=== PATIENT | male | born 1980 | race African-American/Black ===

== ENCOUNTER 2016-09-30 14:29 | Day surgery (SDC) | payer MEDICARE, OTHER ==
[2016-09-29 13:39] LABS: BASOPHILS 0.1 %; BASOPHILS ABSOLUTE 0.01 10/3/uL (0.0-0.16); EOSINOPHILS 1.3 %; EOSINOPHILS ABSOLUTE 0.15 10/3/uL (0.0-0.53); HEMOGLOBIN 12.6 g/dL (13.6-17.8); IMMATURE GRANULOCYTES 0.4 %; IMMATURE GRANULOCYTES ABSOLUTE 0.05 10/3/uL (0.0-0.11); LYMPHOCYTES 21.7 %; LYMPHOCYTES ABSOLUTE 2.42 10/3/uL (0.67-4.30); MEAN CORPUS HGB CONC 33.7 g/dL (32.0-36.0); MEAN CORPUSCULAR HEMOGLOB 29.8 pg (26.0-34.0); MEAN CORPUSCULAR VOLUME 88.4 fL (80-100); MEAN PLATELET VOLUME 9.9 fL (9.2-13.0); MONOCYTES 8.2 %; MONOCYTES ABSOLUTE 0.91 10/3/uL (0.21-1.20); NEUTROPHILS 68.3 %; NEUTROPHILS ABSOLUTE 7.59 10/3/uL (2.02-8.40); RBC DISTRIBUTION WIDTH 13.3 % (12.0-16.0); RED CELL COUNT 4.23 10/6/uL (4.7-6.1)
[2016-09-29 13:42] LABS: HEMATOCRIT 37.4 % (40.0-51.0); MANUAL DIFF NO %; PLATELET COUNT 245 10/3/uL (150-400); WHITE BLOOD CELLS 11.1 10/3/uL (4.5-10.5)
[2016-09-29 13:47] LABS: PROTIME (NOT ORD) 13.5 SEC (12.0-14.5)
[2016-09-29 13:56] LABS: ALBUMIN 3.9 G/DL (3.5-5.0); CALCIUM, SERUM 8.9 MG/DL (8.5-10.4); CHLORIDE, SERUM 98 MMOL/L (96-112); DIRECT BILIRUBIN 0.1 MG/DL (0.0-0.4); GLUCOSE, SERUM 80 MG/DL (60-99); INDIRECT BILIRUBIN(NOT ORDER) 0.5 MG/DL (0.1-0.9); POTASSIUM, SERUM 3.8 MMOL/L (3.5-5.3); SGOT(AST) 69 U/L (5-40); SGPT(ALT) 55 U/L (5-65); SODIUM, SERUM 137 MMOL/L (135-148); TOTAL BILIRUBIN 0.6 MG/DL (0-1.2); TOTAL PROTEIN 7.4 G/DL (6.0-8.5)
[2016-09-29 13:57] LABS: ALKALINE PHOSPHATASE 109 U/L (45-117); BUN (BLOOD UREA NITROGEN) 20 MG/DL (6-23); CO2 (CARBON DIOXIDE) 31 MMOL/L (24-34); CREATININE 1.55 MG/DL (0.70-1.30); GFR AFRICAN AMERICAN 66 ML/MIN (>=60); GFR NON AFRICAN AMERICAN 57 ML/MIN (>=60)
[2016-09-29 14:21] LABS: SED RATE 36 MM/HR (0-15)
--- NOTE | ~2016-09-30 | OP ---
Record Of Operation [facility] [address] [place]. [address] NAME: BIBI ROSA : 80 STATUS : [facility]#: [id number] AGE: 36 ADM/REG DATE : 09/30/16 MR#: [id number] REPORT SERV DATE: 10/05/16 DICTATED BY: DATE: REPORT STATUS : Draft TRANSCRIBED BY: MODL DATE: 10/05/16 DATE OF PROCEDURE: 09/30/2016 PREOPERATIVE DIAGNOSIS: Cellulitis, right foot, secondary to foreign body x2, right first interspace. POSTOPERATIVE DIAGNOSIS: Cellulitis, right foot, secondary to foreign body x2, right first interspace. NAME OF OPERATION: Incision and drainage with foreign body removal, right first interspace. SURGEON: Geronimo Hameed DPM ANESTHESIA: General. HEMOSTASIS: Pneumatic ankle tourniquet. ESTIMATED BLOOD LOSS: Less than 10 mL. PROCEDURE IN DETAIL: Under mild sedation, the patient was brought to the operating room and placed on the operating table in supine position. A pneumatic ankle tourniquet was placed about the patient's right ankle. Following IV sedation, the right foot was scrubbed, prepped, and draped in the usual aseptic manner. The foot was elevated for two minutes and the pneumatic ankle tourniquet was inflated to 250 mmHg. Attention was then directed to the right first interspace, where a 6 cm linear longitudinal incision was made through the two portal entries. The incision was deep via the original skin incision. All bleeders were cauterized as necessary. At this time, the foreign body was visualized in the operative site and removed in total and passed from the operative field and sent to Pathology. The foreign body was approximately 1.5 cm in length and appeared to be metal nail. The wound was then flushed with copious amounts of normal sterile saline. The distal foreign body was noted to be removed from the incision site and was confirmed with intraoperative fluoroscopy. No foreign body was remaining in the first interspace, right foot, by inspection of the incision site and intraoperative fluoroscopy. The wound was then flushed with copious amounts of Hibiclens irrigation. The wound was packed with 0.75-inch silver- impregnated antimicrobial dressing. The wound was covered with ABD pad, 4x4 gauze, and 3- and 4-inch Conform gauze wrap. The pneumatic ankle tourniquet was then deflated, and a prompt hyperemic response noted to all digits of the right foot. An Jose wrap and postop shoe was then applied. The patient tolerated the procedure and anesthesia well. He was transferred to recovery room, vital signs stable, and vascular status intact to all digits of the right foot. Following a period of postoperative monitoring, the patient was discharged home on written and oral postop instructions. 1. Keep dressing dry and intact. 2. Avoid weightbearing, right foot, via crutches. 3. The patient to wear a postop shoe at all times when ambulating. 4. The patient to contact Dr. Hameed for all postoperative followup care and if any problems arise. Record Of Operation [address] [place]. [address] NAME: BIBI ROSA : 80 STATUS : [facility] PAT#: [id number] AGE: 36 ADM/REG DATE : 09/30/16 MR#: [id number] REPORT SERV DATE: 10/05/16 DICTATED BY: DATE: REPORT STATUS : Draft TRANSCRIBED BY: BRADEN DATE: 10/05/16 5. The patient to continue the antibiotics that were prescribed to him in the office. Prescription was written for Percocet 10/325 mg one tablet to be taken by mouth every six hours as needed for severe pain. ANUP Geronimo Hameed DPM / [id number] CC: JUANA Lew M.D.
[~2016-09-30 14:29] MED LIST: ALLEGRA PO; ATV1 PO; BUTRAN; CYMBALTA60 PO; ESKALITH PO; HALCION0.25 MG PO; LEXAPRO10 PO; LEXAPRO20 PO; LOP100 PO; MINIPRESS 2 MG C2 MG PO; NEUR600 PO; NORV10 PO; PRAV10 PO; PROTONIX PO; SAPHRIS10 MG SL; TRILEPTAL600 MG PO; VRAYLAR PO; XANAX1 MG PO
[2016-10-20] MEDS ORDERED: CEPHALEXIN (08:56)
== END 2016-09-30 20:52 | disposition home or self-care (01) ==
LOC: SDC 14:29
PROVIDERS: Podiatrist
PROC: 0H9MXZZ Drainage of Right Foot Skin, External Approach (ICD-10-PCS; principal; 2016-09-30 15:45)
DX: S90.851A Superficial foreign body, right foot, initial encounter (principal); L03.115 Cellulitis of right lower limb; I10 Essential (primary) hypertension; F31.9 Bipolar disorder, unspecified; Z88.2 Allergy status to sulfonamides; Z88.6 Allergy status to analgesic agent; E03.9 Hypothyroidism, unspecified; G40.909 Epilepsy, unspecified, not intractable, without status epilepticus; Z87.891 Personal history of nicotine dependence; Z90.49 Acquired absence of other specified parts of digestive tract
CPT/HCPCS: 80048; 80076; 85025; 85610; 85652; 87015; 87070; 87075; 87102; 87116; 87205; 88300; 93005; J0690; J2250; J2405; J2710; J3010

== ENCOUNTER 2016-10-01 20:18 | Emergency (ER) | payer MEDICARE, OTHER ==
[2016-10-20] MEDS ORDERED: CEPHALEXIN (08:56)
== END 2016-10-01 20:27 | disposition home or self-care (01) ==
LOC: ER 20:18
DX: T81.89XA Other complications of procedures, not elsewhere classified, initial encounter (principal); F31.9 Bipolar disorder, unspecified; I10 Essential (primary) hypertension; Z88.2 Allergy status to sulfonamides; Z88.6 Allergy status to analgesic agent; Z79.899 Other long term (current) drug therapy
CPT/HCPCS: 99283; A9270-GY